=== PATIENT | male | born 1930 | race Caucasian/White ===

== ENCOUNTER → 2019-03-02 | Outpatient (CLI) | payer MEDICARE ==
[~2019-03-02] MED LIST: ALBU8.5H6 INH; ATOR10TA60 PO; CINN500C2 PO; CLOP75TA PO; DOXY20TA5 PO; HYDR-2769 PO; LISI-334 PO; METO1TAB7 PO; MULT-208 PO; OMEG300C PO; OMEP40CA5 PO; RIVA1PAT22 TP; TAMS0.4C2 PO; WARF-31 PO
--- NOTE | 2019-03-03 09:20 | CARD ---
MR#: [id number] Date of Study: 03/02/2019 Ordering Physician: VI BUSTILLO, Referring Physician: VI BUSTILLO, Tech: Makayla Lange APPROVED REPORT EXAM: Two-dimensional and M-mode echocardiogram with Doppler and color Doppler. Other Information Quality : AverageHR: 71bpm INDICATION CVA/TIA Surgery/Intervention Pacemaker: 2D DIMENSIONS RVDd3.1 (2.9-3.5cm)Left Atrium(2D)3.0 (1.6-4.0cm) IVSd1.4 (0.7-1.1cm)Aortic Root(2D)3.0 (2.0-3.7cm) LVDd4.5 (3.9-5.9cm)LVOT Diameter2.2 (1.8-2.4cm) PWd1.2 (0.7-1.1cm)LVDs2.4 (2.5-4.0cm) FS (%) 46.3 %SV72.9 ml LVEF(%)77.8 (>50%) Aortic Valve AoV Peak Bill.369.8cm/sAoV VTI90.2cm AO Peak GR.54.7mmHgLVOT Peak Bill.75.3cm/s LVOT VTI 17.18cmAO Mean GR.39mmHg ASIYA (VMAX)0.68eu8MVJ (VTI)0.74cm2 AI P 1/2 Hwgq562wl Mitral Valve MV E Qoqdizsn01.2cm/sMV DECEL GBWC332ca MV A Toacqhza81.4cm/sMV LSJ78lb E/A Ratio0.9MVA (PHT)2.75cm2 TDI E/Lateral E'10.4E/Medial E'18.4 Pulmonary Valve PV Peak Ovircdqq62.6cm/sPV Peak Grad.4mmHg Tricuspid Valve TR P. Yftjjixs354gk/sRAP EKSZTNNR5rfKg TR Peak Gr.15ijXwJJXO91lkHl Pulmonary Vein S1 Epkajcit66.8cm/sD2 Bectirnn91.0cm/s PVa orfhazjm568aieg LEFT VENTRICLE The Left Ventricle is mildly dilated. There is mild to moderate concentric left ventricular hypertrop hy. The left ventricular systolic function is normal and the ejection fraction is within normal range . There is normal LV segmental wall motion. Tissue Doppler imaging reveals moderate left ventricular diastolic dysfunction. RIGHT VENTRICLE The right ventricle is normal size. There is normal right ventricular wall thickness. The right ventr icular systolic function is normal. ATRIA The left atrium is mildly dilated. The right atrium size is normal. The interatrial septum is intact with no evidence for an atrial septal defect or patent foramen ovale as noted on 2-D or Doppler imagi ng. AORTIC VALVE The aortic valve is calcified and has a restricted leaflet motion. Doppler and Color Flow revealed tr aviva to mild aortic regurgitation. Calculated aortic valve area is .75 cm2 with maximum pressure gradi ent of 55 mmHg and mean pressure gradient of 39 mmHg. Doppler and color-flow analysis revealed severe aortic stenosis. MITRAL VALVE Mitral annular calcification is mild to moderate. There is no evidence of mitral valve prolapse. Ther e is no mitral valve stenosis. Doppler and Color-flow revealed trace mitral regurgitation. TRICUSPID VALVE The tricuspid valve is normal in structure and function. Doppler and Color Flow revealed trace tricus pid regurgitation with an estimated PAP of 32 mmHg. There is no tricuspid valve stenosis. PULMONIC VALVE The pulmonic valve is not well visualized. Doppler and Color Flow revealed no pulmonic valvular regur gitation. There is no pulmonic valvular stenosis. GREAT VESSELS The aortic root is normal in size. The IVC is normal in size and collapses >50% with inspiration. PERICARDIAL EFFUSION There is no evidence of significant pericardial effusion. Critical Notification Critical Value: No <Conclusion> The left ventricular systolic function is normal and the ejection fraction is within normal range. There is normal LV segmental wall motion. Calculated aortic valve area is .75 cm2 with maximum pressure gradient of 55 mmHg and mean pressure g radient of 39 mmHg. Doppler and color-flow analysis revealed severe aortic stenosis. Doppler and Color Flow revealed trace tricuspid regurgitation with an estimated PAP of 32 mmHg. Signed by : Brendan East, Electronically Approved : 03/02/2019 13:35:21
== END | disposition home or self-care (01) ==
LOC: ECHO 09:52
PROVIDERS: ATTEND Family Medicine
DX: I08.0 Rheumatic disorders of both mitral and aortic valves (principal); H53.452 Other localized visual field defect, left eye; Z95.0 Presence of cardiac pacemaker
CPT/HCPCS: 93306

== ENCOUNTER 2019-12-15 08:35 | Inpatient (IN) | payer MEDICARE ==
[~2019-12-15] VITALS: Ht 165.1 cm; Wt 81.2 kg
[~2019-12-15 08:35] MED LIST changes: +OMEP40CA45 PO; -OMEP40CA5 PO
[2019-12-15] MEDS ORDERED: OXYMETAZOLINE 0.05% NASAL SPRAY 30ML BOTTLE. NS ONE (09:00)
[2019-12-15] MEDS ORDERED: EPINEPHrine NASAL 30 MG/30 ML BOTTLE NS ONE (09:00)
[2019-12-15] MEDS ORDERED: COCAINE 4% TOPICAL SOLUTION. TP ONE (09:00)
[2019-12-15 09:47] LABS: BASO # 0.1 x10^3/uL (0.0-0.2); BASO % 1 % (0-3); EOS # 0.1 x10^3/uL (0.0-0.7); EOS % 1 % (0-3); HEMATOCRIT 39.2 % (39.0-53.0); HEMOGLOBIN 13.7 g/dL (13.0-17.5); LYMPH # 1.7 x10^3/uL (1.0-4.8); LYMPH % 15 % (24-48); MEAN CORPUSCULAR HEMOGLOBIN 35 pg (25-35); MEAN CORPUSCULAR HGB CONC 35 g/dL (31-37); MEAN CORPUSCULAR VOLUME 101 fL (79-100); MONO # 0.8 x10^3/uL (0.0-1.1); MONO % 7 % (0-9); NEUT # 9.2 x10^3/uL (1.8-7.7); NEUT % 77 % (31-73); PLATELET COUNT 224 x10^3/uL (140-400); RED CELL DISTRIBUTION WIDTH 14.8 % (11.5-14.5)
[2019-12-15 10:03] LABS: PROTHROMBIN TIME PATIENT 14.4 SEC (11.7-14.0)
--- NOTE | 2019-12-15 10:29 | PHYS DOC ---
Past Medical History Past Medical History: Asthma, High Cholesterol, Hypertension, NC Additional Past Medical Histor: enlarged prostate, stents,emphysema Past Surgical History: Appendectomy, Tonsillectomy, Other Additional Past Surgical Histo: sinus sugery, bilat knee rx, coronary stents Smoking Status: Never Smoker Alcohol Use: None General Adult EDM: Chief Complaint: NOSEBLEED HPI: HPI: Patient is a 89 year old male who present to ER today for evaluation of nose bleeding since 5 AM this morning. Patient said he has been constipated for 2 days, he was trying to go to the bathroom this morning and started having bleeding from his left nostril. It was bleeding heavily, he could not stop it at home so he called his daughter to take him here for evaluation. Patient is on baby aspirin a day, denies any other blood thinner. Patient has history of nose surgery in the past by Dr. Aleisha Jenkins. Patient denies any abdominal pain, no chest pain, no trouble breathing. Review of Systems: Review of Systems: Constitutional: Denies fever or chills. [] Eyes: Denies change in visual acuity. [] HENT: Positive for nosebleed Respiratory: Denies cough or shortness of breath. [] Cardiovascular: Denies chest pain or edema. [] GI: Denies abdominal pain, nausea, vomiting, bloody stools or diarrhea. [] : Denies dysuria. [] Musculoskeletal: Denies back pain or joint pain. [] Integument: Denies rash. [] Neurologic: Denies headache, focal weakness or sensory changes. [] Endocrine: Denies polyuria or polydipsia. [] Lymphatic: Denies swollen glands. [] Psychiatric: Denies depression or anxiety. [] Heart Score: Risk Factors: Risk Factors: DM, Current or recent (<one month) smoker, HTN, HLP, family history of CAD, obesity. Risk Scores: Score 0 - 3: 2.5% MACE over next 6 weeks - Discharge Home Score 4 - 6: 20.3% MACE over next 6 weeks - Admit for Clinical Observation Score 7 - 10: 72.7% MACE over next 6 weeks - Early Invasive Strategies Current Medications: Current Medications Medications (Trade) Dose Ordered Sig/Rico Start Time Stop Time Status Last Admin Dose Admin Cocaine HCl (Cocaine 4% Topical) 4 ml 1X ONCE 12/15/19 09:00 12/15/19 09:01 DC 12/15/19 09:50 4 ML Epinephrine HCl (Adrenalin Nasal) 1 mg 1X ONCE 12/15/19 09:00 12/15/19 09:01 DC 12/15/19 09:50 1 MG Oxymetazoline HCl (Afrin) 2 spray 1X ONCE 12/15/19 09:00 12/15/19 09:01 DC 12/15/19 09:50 2 SPRAY Allergies: Allergies: Allergies Coded Allergies Type Severity Reaction Last Updated Verified NSAIDS (Non-Steroidal Anti-Inflamma Allergy Intermediate 12/15/19 Yes erythromycin base Allergy Intermediate 12/15/19 Yes naproxen Allergy Intermediate 09/13/14 No Physical Exam: PE: Constitutional: Well developed, well nourished, no acute distress, non-toxic appearance. [] HENT: Normocephalic, atraumatic, bilateral external ears normal, oropharynx moist, no oral exudates, nose normal. [] Eyes: PERRLA, EOMI, conjunctiva normal, no discharge. [] Neck: Normal range of motion, no tenderness, supple, no stridor. [] Cardiovascular:Heart rate regular rhythm, no murmur [] Lungs & Thorax: Bilateral breath sounds clear to auscultation [] Abdomen: Bowel sounds normal, soft, no tenderness, no masses, no pulsatile masses. [] Skin: Warm, dry, no erythema, no rash. [] Back: No tenderness, no CVA tenderness. [] Extremities: No tenderness, no cyanosis, no clubbing, ROM intact, no edema. [] Neurologic: Alert and oriented X 3, normal motor function, normal sensory function, no focal deficits noted. [] Psychologic: Affect normal, judgement normal, mood normal. [] Current Patient Data: Labs: Laboratory Tests Test 12/15/19 09:20 White Blood Count 12.0 x10^3/uL (4.0-11.0) H Red Blood Count 3.90 x10^6/uL (4.30-5.70) L Hemoglobin 13.7 g/dL (13.0-17.5) Hematocrit 39.2 % (39.0-53.0) Mean Corpuscular Volume 101 fL (79-100) H Mean Corpuscular Hemoglobin 35 pg (25-35) Mean Corpuscular Hemoglobin Concent 35 g/dL (31-37) Red Cell Distribution Width 14.8 % (11.5-14.5) H Platelet Count 224 x10^3/uL (140-400) Neutrophils (%) (Auto) 77 % (31-73) H Lymphocytes (%) (Auto) 15 % (24-48) L Monocytes (%) (Auto) 7 % (0-9) Eosinophils (%) (Auto) 1 % (0-3) Basophils (%) (Auto) 1 % (0-3) Neutrophils # (Auto) 9.2 x10^3/uL (1.8-7.7) H Lymphocytes # (Auto) 1.7 x10^3/uL (1.0-4.8) Monocytes # (Auto) 0.8 x10^3/uL (0.0-1.1) Eosinophils # (Auto) 0.1 x10^3/uL (0.0-0.7) Basophils # (Auto) 0.1 x10^3/uL (0.0-0.2) Prothrombin Time 14.4 SEC (11.7-14.0) H Prothrombin Time INR 1.2 (0.8-1.1) H Activated Partial Thromboplast Time 26 SEC (24-38) Laboratory Tests 12/15/19 09:20 Vital Signs: Vital Signs Date Time Temp Pulse Resp B/P (MAP) Pulse Ox O2 Delivery O2 Flow Rate FiO2 12/15/19 09:49 68 18 94/55 (68) 94 Room Air 12/15/19 08:45 97.5 97.5 EKG: EKG: [] Radiology/Procedures: Radiology/Procedures: Indication: Epistaxis Procedure: The patient was positioned appropriately and the nares were cleared as well as possible. The bleeding site was POSTERIOR LEFT NARE. NASAL AFRIN, TOPICAL EPINEPHRINE WAS APPLIED. An Epistat Nasal Catheter was inserted into left nare. Hemostasis was obtained. The patient tolerated the procedure well. Complications: none. [facility] [address] [place] [address] IMAGING REPORT Signed PATIENT: JEANNETTE ARREDONDO ACCOUNT: [id number] : 1930 LOCATION: ER AGE: 89 SEX: M EXAM STATUS: REG ER ORD. PHYSICIAN: YANIRA DESAI DO REASON: nausea, vomiting, constipated PROCEDURE: ACUTE ABDOMEN SERIES ACUTE ABDOMEN SERIES History: Reason: nausea, vomiting, constipated / Spl. Instructions: / History: Technique: Upright and supine views the abdomen. Comparison: CT July 18, 2012. Findings: No consolidation or pleural effusion. No pneumothorax. Left-sided pacemaker. Heart size. No pneumoperitoneum. Moderate gaseous distention of the stomach. Several nondilated air-filled loops of small bowel. Air and stool scattered throughout the colon. Advanced lower lumbar spondylosis. Postoperative changes penile prosthesis. Surgical clips right upper quadrant. Impression: 1. Moderate gaseous distention of the stomach. 2. Multiple nondilated air-filled loops of small bowel, may represent enteritis or ileus. Recommend follow-up to exclude developing obstruction. Electronically signed by: Isaac Mosqueda DO (12/15/2019 11:15 AM) [id number] DICTATED and SIGNED BY: ISAAC MOSQUEDA DO DATE: 12/15/19 1115 Course & Med Decision Making: Course & Med Decision Making Pertinent Labs and Imaging studies reviewed. (See chart for details) Patient is an 89-year-old male who was evaluated in the ER due to nasal bleeding, posterior epistaxis on the left side. Bleeding was stopped with nasal catheter placed. Patient magnesium level was low, he was given 2 g of magnesium IV. Patient appeared to be really weak, x-ray abdomen distended stomach, and an Ileus. Discussed with the ENT doctor Dr. Aleisha Jenkins who agreed to see the patient in the hospital. Olimpiaon Disclaimer: Dragon Disclaimer: This electronic medical record was generated, in whole or in part, using a voice recognition dictation system. Departure Departure Impression: Primary Impression: Posterior epistaxis Additional Impression: Hypomagnesemia Disposition: ADMITTED INPATIENT Admitting Physician: HARESH (Dr. ALCARAZ) Condition: STABLE Referrals: VI BUSTILLO MD (PCP) Justicifation of Admission Dx: Justifications for Admission: Justification of Admission Dx: N/A YANIRA DESAI DO Dec 15, 2019 10:29
[2019-12-15 10:47] LABS: CALCIUM 8.7 mg/dL (8.5-10.1); CREATININE 0.9 mg/dL (0.7-1.3); GFR 79.8; POTASSIUM 3.6 mmol/L (3.5-5.1)
[2019-12-15 10:48] LABS: ALBUMIN 3.1 g/dL (3.4-5.0); ALBUMIN/GLOBULIN RATIO 1.1 (1.0-1.7); MAGNESIUM 1.1 mg/dL (1.8-2.4); TOTAL BILIRUBIN 0.6 mg/dL (0.2-1.0); TOTAL PROTEIN 5.8 g/dL (6.4-8.2)
[2019-12-15] MEDS ORDERED: MAGNESIUM SULFATE 2GM 50 ML IV ONE (11:15)
--- NOTE | 2019-12-15 11:18 | RAD ---
ACUTE ABDOMEN SERIES History: Reason: nausea, vomiting, constipated / Spl. Instructions: / History: Technique: Upright and supine views the abdomen. Comparison: CT July 18, 2012. Findings: No consolidation or pleural effusion. No pneumothorax. Left-sided pacemaker. Heart size. No pneumoperitoneum. Moderate gaseous distention of the stomach. Several nondilated air-filled loops of small bowel. Air and stool scattered throughout the colon. Advanced lower lumbar spondylosis. Postoperative changes penile prosthesis. Surgical clips right upper quadrant. Impression: 1. Moderate gaseous distention of the stomach. 2. Multiple nondilated air-filled loops of small bowel, may represent enteritis or ileus. Recommend follow-up to exclude developing obstruction. Electronically signed by: Isaac Mosqueda DO (12/15/2019 11:15 AM) [id number]
[2019-12-15] MEDS ORDERED: ONDANSETRON PF 4 MG/2 ML VIAL. IV PRN (12:15)
[2019-12-15 15:16] VITALS: BP 152/82
[2019-12-15] MEDS ORDERED: ZONI25CA26 PO (16:25)
[2019-12-15] MEDS ORDERED: TAMS0.4C97 PO (16:25)
[2019-12-15] MEDS ORDERED: ATOR40TA59 PO (16:25)
[2019-12-15] MEDS ORDERED: AZEL137S3 NS (16:25)
[2019-12-15] MEDS ORDERED: DONE10TA7 PO (16:25)
[2019-12-15] MEDS ORDERED: ACETAMINOPHEN 325 MG TABLET. PO PRN (16:45)
[2019-12-15 19:05] VITALS: BP 131/62
[2019-12-15] MEDS ORDERED: ALBUTEROL SULFATE 2.5 MG/3 ML NEBU. NEB SCH (20:00)
[2019-12-15] MEDS ORDERED: NON FORMULARY ITEM (Albuterol Sulfate (Albuterol Sulfate Hfa Inhaler) 2 PUFF) INH SCH (20:00)
[2019-12-15] MEDS ORDERED: ZONISAMIDE 50 MG PO SCH (21:00)
[2019-12-15] MEDS: AZELASTINE NASAL SPRAY 30ML BOTTLE. NS SCH (21:00)
[2019-12-15] MEDS ORDERED: ATORVASTATIN CALCIUM 40 MG TABLET. PO SCH (21:00)
--- NOTE | 2019-12-15 21:16 | PDOC1 ---
History and Physical Date of Admission Date of Admission DATE: 12/15/19 TIME: 21:04 Identification/Chief Complaint Chief Complaint nose bleed Source Source: Chart review, Patient History of Present Illness History of Present Illness 89 year old hx of dementia, BPH, HLD who presents with suddent onset of nose bleeding at 5 am. reported constipation for 2 days. patient could not stop bleeding so came to ED. not on blood thinners. takes ASA 81 daily. noted hx of nose surgery seen by Dr. Aleisha Jenkins in past. no other complaints. denies chest pain sob nausea vomiting diarrhea. acute abdominal series 1. Moderate gaseous distention of the stomach. 2. Multiple nondilated air-filled loops of small bowel, may represent enteritis or ileus. Recommend follow-up to exclude developing obstruction. Hb stable in ED at 13.7 Past Medical History Past Medical History HLD, BPH, dementia Past Surgical History Past Surgical History hx of nasal sx in past Family History Family History reviewed and denies Social History Smoke: No ALCOHOL: none Drugs: None Current Problem List Problem List Problems Medical Problems: (1) Hypomagnesemia Status: Acute (2) Posterior epistaxis Status: Acute Current Medications Current Medications Current Medications Oxymetazoline HCl (Afrin) 2 spray 1X ONCE NS Last administered on 12/15/19at 09:50; Start 12/15/19 at 09:00; Stop 12/15/19 at 09:01; Status DC Cocaine HCl (Cocaine 4% Topical) 4 ml 1X ONCE TP Last administered on 12/15/19at 09:50; Start 12/15/19 at 09:00; Stop 12/15/19 at 09:01; Status DC Epinephrine HCl (Adrenalin Nasal) 1 mg 1X ONCE NS Last administered on 12/15/19at 09:50; Start 12/15/19 at 09:00; Stop 12/15/19 at 09:01; Status DC Magnesium Sulfate 50 ml @ 25 mls/hr 1X ONCE IV Last administered on 12/15/19at 11:17; Start 12/15/19 at 11:15; Stop 12/15/19 at 13:14; Status DC Ondansetron HCl (Zofran) 4 mg PRN Q8HRS PRN IV NAUSEA/VOMITING; Start 12/15/19 at 12:15; Stop 12/16/19 at 12:14 Acetaminophen (Tylenol) 650 mg PRN Q6HRS PRN PO PAIN; Start 12/15/19 at 16:45 Atorvastatin Calcium (Lipitor) 40 mg QHS PO ; Start 12/15/19 at 21:00 Azelastine HCl (Astelin) 2 spray BID NS ; Start 12/15/19 at 21:00 Donepezil HCl (Aricept) 10 mg DAILY PO ; Start 12/16/19 at 09:00 Tamsulosin HCl (Flomax) 0.8 mg DAILY PO ; Start 12/16/19 at 09:00 Non-Formulary Medication (Albuterol Sulfate (Albuterol Sulfate Hfa Inhaler)) 2 puff Q4HRS INH ; Start 12/15/19 at 20:00; Status UNV Pantoprazole Sodium (Protonix) 40 mg DAILYAC PO ; Start 12/16/19 at 07:30 Non-Formulary Medication (Zonisamide ) 50 mg HS PO ; Start 12/15/19 at 21:00; Status UNV Albuterol Sulfate (Ventolin Neb Soln) 2.5 mg Q4HRS NEB ; Start 12/15/19 at 20:00 Active Scripts Active Reported Azelastine Hcl 137 Mcg/0.137 Ml Har[place].pump 2 [place] NS BID 30 Days Zonisamide 25 Mg Capsule 50 Mg PO HS Donepezil Hcl 10 Mg Tablet 1 Tab PO DAILY Atorvastatin Calcium 40 Mg Tablet 1 Tab PO DAILY Flomax (Tamsulosin Hcl) 0.4 Mg Cap.er.24h 2 Cap PO DAILY Albuterol Sulfate Hfa Inhaler (Albuterol Sulfate) 8.5 Gm Hfa.aer.ad 2 Puff INH Q4HRS Omeprazole 40 Mg Capsule.dr 1 Cap PO DAILY Allergies Allergies: Coded Allergies: NSAIDS (Non-Steroidal Anti-Inflamma (Verified Allergy, Intermediate, 12/15/19) erythromycin base (Verified Allergy, Intermediate, 12/15/19) naproxen (Unverified Allergy, Intermediate, 09/13/14) ROS Review of System CONSTITUTIONAL: No fever or chills EYES: No recent changes SKIN: No rash or itching CARDIOVASCULAR: No chest pain, syncope, palpitations, or edema RESPIRATORY: No SOB or cough GASTROINTESTINAL: No nausea, vomiting or abdominal pain NEUROLOGICAL: No headaches or weakness ENDOCRINE: No cold or heat intolerance GENITOURINARY: No urgency or frequency of urination MUSCULOSKELETAL: No back pain or joint pain LYMPHATICS: No enlarged lymph nodes PSYCHIATRIC: No anxiety or depression Physical Exam Physical Exam GENERAL: No apparent distress. Alert and oriented. HEENT: Head normocephalic, atraumatic. nasal packing in place NECK: Supple LUNGS: Clear to auscultation. HEART: RRR, S1, S2 present, pulses intact ABDOMEN: Soft, positive bowel sounds. EXTREMITIES: No cyanosis or edema. NEUROLOGIC: Normal speech, normal tone PSYCHIATRIC: Normal affect, normal mood. SKIN: No ulceration. Vitals Vitals Vital Signs Date Time Temp Pulse Resp B/P (MAP) Pulse Ox O2 Delivery O2 Flow Rate FiO2 12/15/19 19:05 99.0 74 20 131/62 (85) 95 Room Air 99.0 Labs Labs Laboratory Tests Test 12/15/19 09:20 White Blood Count 12.0 x10^3/uL (4.0-11.0) Red Blood Count 3.90 x10^6/uL (4.30-5.70) Hemoglobin 13.7 g/dL (13.0-17.5) Hematocrit 39.2 % (39.0-53.0) Mean Corpuscular Volume 101 fL (79-100) Mean Corpuscular Hemoglobin 35 pg (25-35) Mean Corpuscular Hemoglobin Concent 35 g/dL (31-37) Red Cell Distribution Width 14.8 % (11.5-14.5) Platelet Count 224 x10^3/uL (140-400) Neutrophils (%) (Auto) 77 % (31-73) Lymphocytes (%) (Auto) 15 % (24-48) Monocytes (%) (Auto) 7 % (0-9) Eosinophils (%) (Auto) 1 % (0-3) Basophils (%) (Auto) 1 % (0-3) Neutrophils # (Auto) 9.2 x10^3/uL (1.8-7.7) Lymphocytes # (Auto) 1.7 x10^3/uL (1.0-4.8) Monocytes # (Auto) 0.8 x10^3/uL (0.0-1.1) Eosinophils # (Auto) 0.1 x10^3/uL (0.0-0.7) Basophils # (Auto) 0.1 x10^3/uL (0.0-0.2) Prothrombin Time 14.4 SEC (11.7-14.0) Prothromb Time International Ratio 1.2 (0.8-1.1) Activated Partial Thromboplast Time 26 SEC (24-38) Sodium Level 143 mmol/L (136-145) Potassium Level 3.6 mmol/L (3.5-5.1) Chloride Level 105 mmol/L (98-107) Carbon Dioxide Level 24 mmol/L (21-32) Anion Gap 14 (6-14) Blood Urea Nitrogen 21 mg/dL (8-26) Creatinine 0.9 mg/dL (0.7-1.3) Estimated GFR (Cockcroft-Gault) 79.8 BUN/Creatinine Ratio 23 (6-20) Glucose Level 173 mg/dL (70-99) Calcium Level 8.7 mg/dL (8.5-10.1) Magnesium Level 1.1 mg/dL (1.8-2.4) Total Bilirubin 0.6 mg/dL (0.2-1.0) Aspartate Amino Transf (AST/SGOT) 25 U/L (15-37) Alanine Aminotransferase (ALT/SGPT) 20 U/L (16-63) Alkaline Phosphatase 38 U/L (46-116) JN-Vgy-X-Type Natriuretic Peptide 2361 pg/mL (0-449) Total Protein 5.8 g/dL (6.4-8.2) Albumin 3.1 g/dL (3.4-5.0) Albumin/Globulin Ratio 1.1 (1.0-1.7) Laboratory Tests Test 12/15/19 09:20 White Blood Count 12.0 x10^3/uL (4.0-11.0) Red Blood Count 3.90 x10^6/uL (4.30-5.70) Hemoglobin 13.7 g/dL (13.0-17.5) Hematocrit 39.2 % (39.0-53.0) Mean Corpuscular Volume 101 fL (79-100) Mean Corpuscular Hemoglobin 35 pg (25-35) Mean Corpuscular Hemoglobin Concent 35 g/dL (31-37) Red Cell Distribution Width 14.8 % (11.5-14.5) Platelet Count 224 x10^3/uL (140-400) Neutrophils (%) (Auto) 77 % (31-73) Lymphocytes (%) (Auto) 15 % (24-48) Monocytes (%) (Auto) 7 % (0-9) Eosinophils (%) (Auto) 1 % (0-3) Basophils (%) (Auto) 1 % (0-3) Neutrophils # (Auto) 9.2 x10^3/uL (1.8-7.7) Lymphocytes # (Auto) 1.7 x10^3/uL (1.0-4.8) Monocytes # (Auto) 0.8 x10^3/uL (0.0-1.1) Eosinophils # (Auto) 0.1 x10^3/uL (0.0-0.7) Basophils # (Auto) 0.1 x10^3/uL (0.0-0.2) Prothrombin Time 14.4 SEC (11.7-14.0) Prothromb Time International Ratio 1.2 (0.8-1.1) Activated Partial Thromboplast Time 26 SEC (24-38) Sodium Level 143 mmol/L (136-145) Potassium Level 3.6 mmol/L (3.5-5.1) Chloride Level 105 mmol/L (98-107) Carbon Dioxide Level 24 mmol/L (21-32) Anion Gap 14 (6-14) Blood Urea Nitrogen 21 mg/dL (8-26) Creatinine 0.9 mg/dL (0.7-1.3) Estimated GFR (Cockcroft-Gault) 79.8 BUN/Creatinine Ratio 23 (6-20) Glucose Level 173 mg/dL (70-99) Calcium Level 8.7 mg/dL (8.5-10.1) Magnesium Level 1.1 mg/dL (1.8-2.4) Total Bilirubin 0.6 mg/dL (0.2-1.0) Aspartate Amino Transf (AST/SGOT) 25 U/L (15-37) Alanine Aminotransferase (ALT/SGPT) 20 U/L (16-63) Alkaline Phosphatase 38 U/L (46-116) MQ-Exf-R-Type Natriuretic Peptide 2361 pg/mL (0-449) Total Protein 5.8 g/dL (6.4-8.2) Albumin 3.1 g/dL (3.4-5.0) Albumin/Globulin Ratio 1.1 (1.0-1.7) VTE Prophylaxis Ordered VTE Prophylaxis Devices: Yes VTE Pharmacological Prophylaxi: Yes Assessment/Plan Assessment/Plan A/P Acute Epistaxis Moderate gaseous distention of the stomach. Multiple nondilated air-filled loops of small bowel, may represent enteritis or ileus. Recommend follow-up to exclude developing obstruction. elevated sugar Elevated BNP admit to medical floor bed nasal packing ENT consult check a1c repeat abdominal series in AM no heparin given bleed Hb in AM FULL CODE med rec completed. Justicifation of Admission Dx: Justifications for Admission: Justification of Admission Dx: N/A RONNY ALCARAZ MD Dec 15, 2019 21:16
[2019-12-15] MEDS ORDERED: ALBUTEROL SULFATE 2.5 MG/3 ML NEBU. NEB PRN (21:45)
[2019-12-15 23:06] VITALS: BP 117/52
[2019-12-16 02:55] VITALS: BP 103/56
--- NOTE | 2019-12-16 03:00 | NUR ---
patient pulled plug out of l nostril. No bleeding noted. Patient comfortable at this time.
[2019-12-16 03:53] LABS: BASO # 0.1 x10^3/uL (0.0-0.2); BASO % 1 % (0-3); EOS % 0 % (0-3); HEMATOCRIT 31.8 % (39.0-53.0); HEMOGLOBIN 11.4 g/dL (13.0-17.5); LYMPH % 22 % (24-48); MEAN CORPUSCULAR HEMOGLOBIN 36 pg (25-35); MEAN CORPUSCULAR HGB CONC 36 g/dL (31-37); MEAN CORPUSCULAR VOLUME 99 fL (79-100); MONO # 0.8 x10^3/uL (0.0-1.1); MONO % 9 % (0-9); NEUT # 6.1 x10^3/uL (1.8-7.7); NEUT % 68 % (31-73); PLATELET COUNT 171 x10^3/uL (140-400)
[2019-12-16 04:11] LABS: CALCIUM 7.9 mg/dL (8.5-10.1); GFR 70.7; POTASSIUM 3.5 mmol/L (3.5-5.1)
[2019-12-16] MEDS ORDERED: ZONISAMIDE 50 MG PO SCH (05:17)
[2019-12-16 07:12] VITALS: BP 110/62
[2019-12-16] MEDS ORDERED: PANTOPRAZOLE 40 MG TABLET.DR. PO SCH (07:30)
[2019-12-16] MEDS: AZELASTINE NASAL SPRAY 30ML BOTTLE. NS SCH (09:00)
[2019-12-16] MEDS ORDERED: TAMSULOSIN 0.4 MG CAP.ER.24H. PO SCH (09:00)
[2019-12-16] MEDS ORDERED: DONEPEZIL HCL 10 MG TABLET. PO SCH (09:00)
[2019-12-16 11:23] VITALS: BP 95/46
--- NOTE | 2019-12-16 12:07 | RAD ---
Examination: ACUTE ABDOMEN SERIES History: Pain Comparison/Correlation: 12/15/2019 acute abdomen series exam Findings: Portable upright frontal view of the chest was obtained. Dual-lead left-sided pacemaker is present. Heart size and pulmonary vasculature are normal. No pneumothorax. No infiltrate or pleural effusion. Right mid abdominal surgical clips are present. Fluid level within nondistended bowel. Gas within stomach noted. No suspicious abdominal calcifications is again noted. Degenerative changes of the spine again seen. Compression deformity of T12 is present and unchanged. No extraluminal gas. Decreased distention of small bowel is noted since the prior exam. Impression: No infiltrates in the interval. No bowel obstruction. Electronically signed by: Jamari Turk MD (12/16/2019 12:03 PM) [id number]
--- NOTE | 2019-12-16 12:32 | DISCH ---
DISCHARGE INSTRUCTIONS Condition on Discharge Condition on Discharge: Stable Activity After Discharge Activity Instructions for Disc: No restrictions Diet after Discharge Diet after Discharge: Cardiac Checks after Discharge Checks after discharge: Check your Temp as needed Contacting the DRGabriel after DC Call your doctor for: If your condition worsens Follow-Up Follow up with: Follow-up with ENT tomorrow regarding your nosebleed episode SANTIAGO ECHEVERRIA MD Dec 16, 2019 12:31
--- NOTE | 2019-12-16 13:09 | NUR ---
SW following. Reviewed chart and spoke with RN and CM. Pt from home with no SW needs at discharge. Pt to discharge today on room air and oral medications.
--- NOTE | 2019-12-16 13:20 | NUR ---
Discharge Note: JEANNETTE ARREDONDO [address] Discharge instructions and discharge home medications reviewed with patient and a copy given. All questions have been answered and understanding verbalized. The following instructions and handouts were given: Follow up with Dr. Jenkins on Saturday at her clinic. Watch out for repeat episodes of nose bleed, severe body weakness. Continue home meds as directed. Follow up with PCP in a week. Discontinued lines and drains: peripheral IV intact, patient tolerated removal, no complications noted. Patient discharged to home with self-care via wheelchair accompanied by family members at 1310.
--- NOTE | 2019-12-16 13:31 | PDOC2 ---
Consult: Chief Complaint: epistaxis HPI: 89 year old male presents to ER yesterday with severe left-sided epistaxis. Patient had previously underwent right FESS (maxillary) and bilateral denervation of nasal cavity with cryotherapy (Clarifix) on 11-20-2019. Patient had severe left sided bleeding yesterday. ER placed pack to resolve. Patient was admitted to hospital due to weakness and abnormal electrolytes. Patient sneezed out pack in middle of night. No issues with recurrent bleeding PMH/PSH/Meds: reviewed PE: VSS, Afebrile Nasal Cavity: No further bleeding OC/OP: no posterior bleeding A: 89 year old male with recent epistaxis--- over 1 month ago. No further bleeding after packing removed. P: 1. Discussed no nose blowing or strenuous activity with the patient. 2. Paitent to follow up with me on Saturday for nasal endoscopy and exam. CRISPIN ARREDONDO MD Dec 16, 2019 13:31
--- NOTE | 2019-12-16 17:48 | PDOC3 ---
[facility]-Discharge Summary Date of Admission: Date of Admission: Dec 16, 2019 Date of Discharge: Date of Discharge: Dec 16, 2019 Admission Diagnosis: Admitting Diagnosis: Acute Epistaxis Moderate gaseous distention of the stomach. Multiple nondilated air-filled loops of small bowel, may represent enteritis or ileus. Recommend follow-up to exclude developing obstruction. elevated sugar Elevated BNP Discharge Diagnosis: Discharge Diagnosis: Acute Epistaxisstable Dementia Dyslipidemia Elevated blood sugars BPH Consults: Consults: ENT Hospital Course: Hospital Course: 89 year old hx of dementia, BPH, HLD who presents with suddent onset of nose bleeding at 5 am. reported constipation for 2 days. patient could not stop bleeding so came to ED. not on blood thinners. takes ASA 81 daily. noted hx of nose surgery seen by Dr. Aleisha Jenkins in past. no other complaints. denies chest pain sob nausea vomiting diarrhea. Patient was admitted for further care. Nasal packing was kept in place and eventually removed by ENT service. Upon further questioning patient states that he was trying to apply nasal spray to his nose and because of his essential tremors he went to fire ant and states that he might of ruptured his membranes. Patient was instructed to follow-up with ENT tomorrow morning. Patient has stopped bleeding and did not require any nasal packing. Patient was clinically stable and his blood pressures are within normal limits. Patient was tolerating diet. Patient's gastric distention had also improved with a good bowel movement before discharge. A KUB was repeated which showed decrease in his gastric distention. The rest of his hospital course was uneventful. Disposition: Disposition/Orders: D/C to Home Activity: Activity: Resume previous activity Diet: Diet: Regular Medications: Home Meds Reported Medications Zonisamide (ZONISAMIDE) 25 Mg Capsule, 50 MG PO HS for unknown, CAP 12/15/19 Donepezil Hcl (DONEPEZIL HCL) 10 Mg Tablet, 1 TAB PO DAILY for dementia, #90 TAB 1 Refill 12/15/19 Atorvastatin Calcium (ATORVASTATIN CALCIUM) 40 Mg Tablet, 1 TAB PO DAILY for HLD, #30 TAB 5 Refills 12/15/19 Tamsulosin Hcl (FLOMAX) 0.4 Mg Cap.er.24h, 2 CAP PO DAILY for BPH, #90 CAP 3 Refills 12/15/19 Albuterol Sulfate (ALBUTEROL SULFATE HFA INHALER) 8.5 Gm Hfa.aer.ad, 2 PUFF INH Q4HRS for FOR ASTHMA, INHALER 0 Refills 09/13/14 Omeprazole (OMEPRAZOLE) 40 Mg Capsule.dr, 1 CAP PO DAILY, #30 CAP 3 Refills 09/13/14 Discontinued Reported Medications Azelastine Hcl (AZELASTINE HCL) 137 Mcg/0.137 Ml Carter.pump, 2 SPRAY NS BID for unknown for 30 Days, #30 ML 0 Refills 12/15/19 Atorvastatin Calcium (ATORVASTATIN CALCIUM) 10 Mg Tablet, 1 TAB PO DAILY, #30 TAB 5 Refills 09/13/14 Clopidogrel Bisulfate (CLOPIDOGREL) 75 Mg Tablet, 1 TAB PO DAILY, #90 TAB 1 Refill 09/13/14 Cinnamon Bark (CINNAMON) 500 Mg Capsule, 500 MG PO 09/13/14 Doxycycline Hyclate (DOXYCYCLINE HYCLATE) 20 Mg Tablet, 20 MG PO 09/13/14 [place]-3 Fatty Acids (FISH OIL) 300 Mg Capsule, 300 MG PO 09/13/14 Multivitamin (MULTI-DAY VITAMINS) 1 Each Tablet, 1 TAB PO DAILY, #30 TAB 09/13/14 Lisinopril (LISINOPRIL) 20 Mg Tablet, 1 TAB PO DAILY, #30 TAB 5 Refills 09/13/14 Tamsulosin Hcl (TAMSULOSIN HCL) 0.4 Mg Cap.er.24h, 1 CAP PO DAILY, #30 CAP 5 Refills 09/13/14 Metoprolol/Hydrochlorothiazide (METOPROLOL-HCTZ 100-25 MG TAB) 1 Each Tablet, 1 TAB PO DAILY for FOR HYPERTENSION, #30 TAB 0 Refills 09/13/14 Rivastigmine (EXELON 4.6mg/24hr) 1 Each Patch.td24, 1 PATCH TP DAILY, #30 PATCH 3 Refills 09/13/14 Hydrocodone Bit/Acetaminophen (HYDROCODONE-APAP 10-325 ) 1 Each Tablet, 1 TAB PO BID, #60 TAB 09/13/14 Warfarin Sodium (WARFARIN SODIUM) 5 Mg Tablet, 1 TAB PO DAILY, #90 TAB 1 Refill 09/13/14 Scheduled Albuterol Sulfate (Albuterol Sulfate Hfa Inhaler), 2 PUFF INH Q4HRS, (Reported) Atorvastatin Calcium (Atorvastatin Calcium), 1 TAB PO DAILY, (Reported) Donepezil Hcl (Donepezil Hcl), 1 TAB PO DAILY, (Reported) Omeprazole (Omeprazole), 1 CAP PO DAILY, (Reported) Tamsulosin Hcl (Flomax), 2 CAP PO DAILY, (Reported) Zonisamide (Zonisamide), 50 MG PO HS, (Reported) Discontinued Medications Atorvastatin Calcium (Atorvastatin Calcium), 1 TAB PO DAILY, (Reported) Azelastine Hcl (Azelastine Hcl), 2 SPRAY NS BID, (Reported) Cinnamon Bark (Cinnamon), 500 MG PO, (Reported) Clopidogrel Bisulfate (Clopidogrel), 1 TAB PO DAILY, (Reported) Doxycycline Hyclate (Doxycycline Hyclate), 20 MG PO, (Reported) Hydrocodone Bit/Acetaminophen (Hydrocodone-Apap 10-325 ), 1 TAB PO BID, (Reported) Lisinopril (Lisinopril), 1 TAB PO DAILY, (Reported) Metoprolol/Hydrochlorothiazide (Metoprolol-Hctz 100-25 Mg Tab), 1 TAB PO DAILY, (Reported) Multivitamin (Multi-Day Vitamins), 1 TAB PO DAILY, (Reported) [place]-3 Fatty Acids (Fish Oil), 300 MG PO, (Reported) Rivastigmine (EXELON 4.6mg/24hr), 1 PATCH TP DAILY, (Reported) Tamsulosin Hcl (Tamsulosin Hcl), 1 CAP PO DAILY, (Reported) Warfarin Sodium (Warfarin Sodium), 1 TAB PO DAILY, (Reported) Total Time: Total Time: Total time spent less than 35 minutes Justicifation of Admission Dx: Justifications for Admission: Justification of Admission Dx: N/A SANTIAGO ECHEVERRIA MD Dec 16, 2019 17:48
[2019-12-17 02:09] LABS: HEMOGLOBIN A1C 5.5 % (4.8-5.6)
== END 2019-12-16 13:10 | disposition home or self-care (01) | DRG 151 ==
LOC: ER 08:35 → 6 SOUTH 12:08
PROVIDERS: ADMIT Internal Medicine; ATTEND Internal Medicine
DX: R04.0 Epistaxis (principal); K31.89 Other diseases of stomach and duodenum; E78.00 Pure hypercholesterolemia, unspecified; E78.5 Hyperlipidemia, unspecified; E83.42 Hypomagnesemia; F03.90 Unspecified dementia, unspecified severity, without behavioral disturbance, psychotic disturbance, mood disturbance, and anxiety; I10 Essential (primary) hypertension; R73.9 Hyperglycemia, unspecified; J43.9 Emphysema, unspecified; J45.909 Unspecified asthma, uncomplicated; K59.00 Constipation, unspecified; N40.0 Benign prostatic hyperplasia without lower urinary tract symptoms; G25.0 Essential tremor; Z79.82 Long term (current) use of aspirin; Z90.49 Acquired absence of other specified parts of digestive tract; Z95.5 Presence of coronary angioplasty implant and graft; I25.2 Old myocardial infarction
CPT/HCPCS: 36415; 74022; 80048; 80053; 83036; 83735; 83880; 85025; 85610; 85730; 96365; 96366; J3475; 99285-25; G0378

== ENCOUNTER 2020-03-07 19:14 | Observation (INO) | payer MEDICARE ==
[~2020-03-07] VITALS: Ht 180.3 cm; Wt 84.1 kg
[~2020-03-07 19:14] MED LIST changes: +ATOR40TA59 PO; +AZEL137S3 NS; +DONE10TA7 PO; +TAMS0.4C97 PO; +ZONI25CA26 PO
[2020-03-07 20:13] LABS: BASO % 1 % (0-3); EOS # 0.1 x10^3/uL (0.0-0.7); EOS % 2 % (0-3); HEMATOCRIT 31.2 % (39.0-53.0); HEMOGLOBIN 10.3 g/dL (13.0-17.5); LYMPH # 1.1 x10^3/uL (1.0-4.8); LYMPH % 21 % (24-48); MEAN CORPUSCULAR HEMOGLOBIN 29 pg (25-35); MEAN CORPUSCULAR HGB CONC 33 g/dL (31-37); MEAN CORPUSCULAR VOLUME 88 fL (79-100); MONO # 0.6 x10^3/uL (0.0-1.1); MONO % 10 % (0-9); NEUT # 3.6 x10^3/uL (1.8-7.7); NEUT % 66 % (31-73); PLATELET COUNT 122 x10^3/uL (140-400); RED BLOOD COUNT 3.53 x10^6/uL (4.30-5.70); RED CELL DISTRIBUTION WIDTH 17.5 % (11.5-14.5); WHITE BLOOD COUNT 5.5 x10^3/uL (4.0-11.0)
[2020-03-07 20:21] LABS: PROTHROMBIN TIME PATIENT 14.1 SEC (11.7-14.0)
[2020-03-07 20:22] LABS: CALCIUM 8.8 mg/dL (8.5-10.1); CREATININE 0.9 mg/dL (0.7-1.3); GFR 79.6; POTASSIUM 3.5 mmol/L (3.5-5.1)
--- NOTE | 2020-03-07 20:34 | RAD ---
CHEST AP ONLY History: Shortness of breath Comparison: December 16, 2019 Findings: Single view of the chest is submitted. Pericardial cardiac silhouette is again enlarged. There may be trace pleural effusions bilaterally, also mild bibasilar airspace opacity. There is again dual lead left electronic cardiac device. There is percutaneous aortic valve prosthesis. There is atherosclerotic calcification near aortic arch. No pneumothorax is identified. There is degenerative change of the acromioclavicular joints bilaterally. Impression: 1. There may be trace pleural effusions bilaterally. There is also mild bibasilar airspace opacity which may be atelectasis/edema/mild infiltrates. Electronically signed by: Quoc Quan MD (03/07/2020 8:31 PM) [facility]
[2020-03-07] MEDS ORDERED: cefTRIAXone IV Push 1 GM VIAL. IVP ONE (20:45)
--- NOTE | 2020-03-07 21:13 | PHYS DOC ---
Past Medical History Past Medical History: Asthma, High Cholesterol, Hypertension, DC Additional Past Medical Histor: enlarged prostate, stents,emphysema Past Surgical History: Appendectomy, Tonsillectomy, Other Additional Past Surgical Histo: sinus sugery, bilat knee rx, coronary stents Smoking Status: Never Smoker Alcohol Use: None General Adult EDM: Chief Complaint: SHORTNESS OF BREATH HPI: HPI: Patient is an 89-year-old male who presents to the emergency room complaining of 24 hours of cough, shortness of breath generally feeling unwell, nausea. Patient denies any abdominal pain but he feels very full. He had an aortic valve replacement done last week without any complications. His first he knows he does not have any history of congestive heart failure. He does have a pacemaker in. He states the cough is dry and rare. He denies any chest pain. He is not on oxygen at home. Review of Systems: Review of Systems: General: Denies fever, chills, sweats. Reports fatigue Eyes: Denies drainage, blurred vision, eye redness HENT: Denies rhinorrhea, sore throat, earache Respiratory: Denies wheezing reports shortness of breath, cough Cardiac: Denies edema, palpitations, chest pain GI: Denies abdominal pain, vomiting. Reports nausea MSK: Denies back pain, neck pain Skin: Denies rash, jaundice Neuro: Denies headache, dizziness Psychiatric: Denies SI/HI Heart Score: Risk Factors: Risk Factors: DM, Current or recent (<one month) smoker, HTN, HLP, family history of CAD, obesity. Risk Scores: Score 0 - 3: 2.5% MACE over next 6 weeks - Discharge Home Score 4 - 6: 20.3% MACE over next 6 weeks - Admit for Clinical Observation Score 7 - 10: 72.7% MACE over next 6 weeks - Early Invasive Strategies Current Medications: Current Medications Medications (Trade) Dose Ordered Sig/Rico Start Time Stop Time Status Last Admin Dose Admin Ceftriaxone Sodium (Rocephin) 1 gm 1X ONCE 03/07/20 20:45 03/07/20 20:46 DC Allergies: Allergies: Allergies Coded Allergies Type Severity Reaction Last Updated Verified NSAIDS (Non-Steroidal Anti-Inflamma Allergy Intermediate 12/15/19 Yes erythromycin base Allergy Intermediate 12/15/19 Yes naproxen Allergy Intermediate 09/13/14 No Physical Exam: PE: General: Awake, alert, NAD. Well Nourished, well hydrated. Cooperative HEENT: Atraumatic, EOMI, PERRL, airway patent, moist oral mucosa Neck: Supple, trachea midline Respiratory: CTA bilaterally, normal effort, no wheezing/crackles CV: RRR, no murmur, cap refill <2 GI: Soft, nondistended, nontender, no masses MSK: No obvious deformities Skin: Warm, dry, intact Neuro: A&O x3, speech NL, sensory and motor grossly intact, no focal deficits Psych: Normal affect, normal mood, not suicidal or homicidal Current Patient Data: Labs: Laboratory Tests Test 03/07/20 19:50 White Blood Count 5.5 x10^3/uL (4.0-11.0) Red Blood Count 3.53 x10^6/uL (4.30-5.70) L Hemoglobin 10.3 g/dL (13.0-17.5) L Hematocrit 31.2 % (39.0-53.0) L Mean Corpuscular Volume 88 fL (79-100) Mean Corpuscular Hemoglobin 29 pg (25-35) Mean Corpuscular Hemoglobin Concent 33 g/dL (31-37) Red Cell Distribution Width 17.5 % (11.5-14.5) H Platelet Count 122 x10^3/uL (140-400) L Neutrophils (%) (Auto) 66 % (31-73) Lymphocytes (%) (Auto) 21 % (24-48) L Monocytes (%) (Auto) 10 % (0-9) H Eosinophils (%) (Auto) 2 % (0-3) Basophils (%) (Auto) 1 % (0-3) Neutrophils # (Auto) 3.6 x10^3/uL (1.8-7.7) Lymphocytes # (Auto) 1.1 x10^3/uL (1.0-4.8) Monocytes # (Auto) 0.6 x10^3/uL (0.0-1.1) Eosinophils # (Auto) 0.1 x10^3/uL (0.0-0.7) Basophils # (Auto) 0.0 x10^3/uL (0.0-0.2) Prothrombin Time 14.1 SEC (11.7-14.0) H Prothrombin Time INR 1.1 (0.8-1.1) Sodium Level 140 mmol/L (136-145) Potassium Level 3.5 mmol/L (3.5-5.1) Chloride Level 105 mmol/L (98-107) Carbon Dioxide Level 31 mmol/L (21-32) Anion Gap 4 (6-14) L Blood Urea Nitrogen 10 mg/dL (8-26) Creatinine 0.9 mg/dL (0.7-1.3) Estimated GFR (Cockcroft-Gault) 79.6 Glucose Level 102 mg/dL (70-99) H Calcium Level 8.8 mg/dL (8.5-10.1) Troponin I Quantitative 0.074 ng/mL (0.000-0.055) TA-Pqx-J-Type Natriuretic Peptide 4523 pg/mL (0-449) H Laboratory Tests 03/07/20 19:50 Laboratory Tests 03/07/20 19:50 Vital Signs: Vital Signs Date Time Temp Pulse Resp B/P (MAP) Pulse Ox O2 Delivery O2 Flow Rate FiO2 03/07/20 19:30 99.0 70 26 137/63 (87) 94 Room Air 99.0 EKG: EKG: [] Radiology/Procedures: Radiology/Procedures: [] Course & Med Decision Making: Course & Med Decision Making Pertinent Labs and Imaging studies reviewed. (See chart for details) Patient is an 89-year-old male who presents to the emergency room with postop shortness of breath, fatigue, nausea. It is concerning for possible postop pneumonia versus coronavirus. Coronavirus test was sent. Chest x-ray shows pleural effusions. Patient will be given Rocephin here in the emergency room. He is requiring 3 L of oxygen. He will be admitted to the hospitalist for further care and evaluation. Coronavirus test is pending. Brandlive Disclaimer: DragMagic[employer] Disclaimer: This electronic medical record was generated, in whole or in part, using a voice recognition dictation system. Departure Departure Impression: Primary Impression: Pneumonia Additional Impression: Hypoxia Disposition: ADMITTED INPATIENT Condition: IMPROVED Referrals: VI BUSTILLO MD (PCP) DAISY HUTCHINSON MD Mar 07, 2020 21:13
[2020-03-08] VITALS (7 sets, daily range): BP systolic 96–177; BP diastolic 52–81
[2020-03-08] MEDS ORDERED: FURO20TA3 PO (04:58)
[2020-03-08] MEDS ORDERED: AZEL137S3 NS (04:58)
[2020-03-08] MEDS ORDERED: ASPI-630 PO (04:58)
[2020-03-08] MEDS ORDERED: ACET500T68 PO (04:58)
[2020-03-08] MEDS ORDERED: [UNRECOGNIZED DRUG - CODE] PO (04:58)
[2020-03-08] MEDS ORDERED: METO-239 PO (05:01)
[2020-03-08] MEDS ORDERED: ATROVENT HFA12.9 GM IH (05:01)
[2020-03-08] MEDS ORDERED: SENN1TAB99 PO (05:01)
[2020-03-08] MEDS ORDERED: TIOT18CA IH (05:02)
[2020-03-08] MEDS ORDERED: MULT-245 PO (05:02)
[2020-03-08] MEDS ORDERED: C.DIFF MED SCREEN BY RX. MC ONE (09:00)
[2020-03-08] MEDS: ACETAMINOPHEN 500 MG TABLET PO PRN (09:50)
--- NOTE | 2020-03-08 11:01 | PDOC2 ---
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 REFERRING PHYSICIAN Referring Physician: Dr. Roblero SOURCE Source: Chart review, Patient HISTORY OF PRESENT ILLNESS HISTORY OF PRESENT ILLNESS This is an 89 yo male who presented secondary to shortness of breath and cough for the last week. Patient forgetful/confused. Tells me he is here for indigestion. Denies any shortness of breath specifically, but does reports that he is breathing faster that normal. Appears dyspneic with exertion/talking. He denies any chest pain, palpitations, dizziness, diaphoresis, or nausea/vomiting. Does report forgetfulness. Underwent TAVR 03/02/20 at . Tolerated surgery well and was discharged the following day. Reports compliance with meds. 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 Does not follow routinely at . PAST MEDICAL HISTORY Cardiovascular: AFIB, CAD, CHF, HTN, Hyperlipidemia, Aortic stenosis (s/p TAVR 03/02/20) Pulmonary: COPD, Other (PRASANNA) CENTRAL NERVOUS SYSTEM: CVA GI: GERD Heme/Onc: Anemia NOS Renal/: Benign prostatic enlarg. PAST SURGICAL HISTORY Past Surgical History: Appendectomy, Cholecystectomy, Total knee replacement (bilateral ), Tonsillectomy, Other (vasectomy ) SOCIAL HISTORY Smoke: No ALCOHOL: none Drugs: None Lives: with Family CURRENT MEDICATIONS CURRENT MEDICATIONS Current Medications Medications (Trade) Dose Ordered Sig/Rico Route PRN Reason Start Time Stop Time Status Last Admin Dose Admin Ceftriaxone Sodium (Rocephin) 1 gm 1X ONCE IVP 03/07/20 20:45 03/07/20 20:46 DC 03/07/20 20:45 Acetaminophen (Tylenol) 1,000 mg PRN Q8HRS PRN PO pain or fever 03/08/20 09:30 03/08/20 09:50 ALLERGIES ALLERGIES: Coded Allergies: NSAIDS (Non-Steroidal Anti-Inflamma (Verified Allergy, Intermediate, 12/15/19) erythromycin base (Verified Allergy, Intermediate, 12/15/19) naproxen (Verified Allergy, Intermediate, 03/08/20) ROS Review of System 14 point ROS conducted with pertinent positives noted above in HPI although limited due to dementia PHYSICAL EXAM General: Alert, Cooperative, No acute distress, Other (oriented to person and place) HEENT: Mucous membr. moist/pink Lungs: Clear to auscultation Heart: Other (vpaced with underlying AFIB) Abdomen: Soft, No tenderness Extremities: Other (trace bilateral LE edema ) Skin: No breakdown Neuro: Sensation intact Psych/Mental Status: Mood NL, Other (forgetful) MUSCULOSKELETAL: Osteoarthritic changes both hands VITALS/I&O VITALS/I&O: Vital Signs Date Time Temp Pulse Resp B/P (MAP) Pulse Ox O2 Delivery O2 Flow Rate FiO2 03/08/20 07:00 98.2 70 18 177/81 (113) 100 Nasal Cannula 2.0 98.2 LABS Lab: Laboratory Tests Test 03/07/20 19:50 White Blood Count 5.5 x10^3/uL (4.0-11.0) Red Blood Count 3.53 x10^6/uL (4.30-5.70) L Hemoglobin 10.3 g/dL (13.0-17.5) L Hematocrit 31.2 % (39.0-53.0) L Mean Corpuscular Volume 88 fL (79-100) Mean Corpuscular Hemoglobin 29 pg (25-35) Mean Corpuscular Hemoglobin Concent 33 g/dL (31-37) Red Cell Distribution Width 17.5 % (11.5-14.5) H Platelet Count 122 x10^3/uL (140-400) L Neutrophils (%) (Auto) 66 % (31-73) Lymphocytes (%) (Auto) 21 % (24-48) L Monocytes (%) (Auto) 10 % (0-9) H Eosinophils (%) (Auto) 2 % (0-3) Basophils (%) (Auto) 1 % (0-3) Neutrophils # (Auto) 3.6 x10^3/uL (1.8-7.7) Lymphocytes # (Auto) 1.1 x10^3/uL (1.0-4.8) Monocytes # (Auto) 0.6 x10^3/uL (0.0-1.1) Eosinophils # (Auto) 0.1 x10^3/uL (0.0-0.7) Basophils # (Auto) 0.0 x10^3/uL (0.0-0.2) Prothrombin Time 14.1 SEC (11.7-14.0) H Prothrombin Time INR 1.1 (0.8-1.1) Sodium Level 140 mmol/L (136-145) Potassium Level 3.5 mmol/L (3.5-5.1) Chloride Level 105 mmol/L (98-107) Carbon Dioxide Level 31 mmol/L (21-32) Anion Gap 4 (6-14) L Blood Urea Nitrogen 10 mg/dL (8-26) Creatinine 0.9 mg/dL (0.7-1.3) Estimated GFR (Cockcroft-Gault) 79.6 Glucose Level 102 mg/dL (70-99) H Calcium Level 8.8 mg/dL (8.5-10.1) Troponin I Quantitative 0.074 ng/mL (0.000-0.055) UC-Tue-Y-Type Natriuretic Peptide 4523 pg/mL (0-449) H Laboratory Tests 03/07/20 19:50 Laboratory Tests 03/07/20 19:50 ECHOCARDIOGRAM ECHOCARDIOGRAM <Conclusion> The left ventricular systolic function is normal and the ejection fraction is within normal range. There is normal LV segmental wall motion. Calculated aortic valve area is .75 cm2 with maximum pressure gradient of 55 mmHg and mean pressure gradient of 39 mmHg. Doppler and color-flow analysis revealed severe aortic stenosis. Doppler and Color Flow revealed trace tricuspid regurgitation with an estimated PAP of 32 mmHg. DATE: 03/02/19 1316 Normal left ventricular systolic function, estimated ejection fraction is 65%. Moderate concentric hypertrophy. The right ventricular size, wall thickness and systolic function are normal. Pacemaker lead present in the ventricle. Mild biatrial dilatation. Trace MV regurgitation, mild ot moderate TV regurgitation. There is a well seated, normal functioning TAVR (# 26 Clara S3, MG= 8 mmHg), no paravalvular/transvalvular regurgitation. Estimated Peak Systolic PA Pressure 61 mmHg DATE 03/03/20 - LIMITED ECHO HEART CATH HEART CATH DATE: 01/08/2020 CARDIAC CATHETERIZATION REPORT FINDINGS: Selective left and right coronary cineangiograms. The left coronary was visualized with the TIG catheter. The left main bifurcated to LAD and circumflex vessel. The left main itself was free of any angiographically significant obstruction. The LAD was a type 2 configuration gave rise to a medium-sized diagonal branch which arose in the mid segment. There was a patent stent in the proximal mid segments of the LAD with mild in- stent restenosis of 20% to 30%. There was a 30-40 percent stenosis distal to the mid LAD stent. Otherwise, no high-grade focal obstruction in the LAD or its diagonal branch. The circumflex was visualized, gave rise to a 1st, 2nd and 3rd obtuse marginal branch. The circumflex and its marginal branches were all free of any angiographically significant disease. [place] right coronary was visualized with the TIG as well. Technically, it was dominant and supplied a posterior descending and posterolateral branch. The mid segment of the RCA demonstrated a 20% to 30% irregularity with a more focal 30% to 40% stenosis in the midportion of the posterolateral vessel. Otherwise the right coronary artery and its distal branches were all free of any angiographically significant disease. ASSESSMENT/PLAN: Mild to moderate nonobstructive coronary atherosclerosis. PLAN: We will proceed with remainder of the workup and planning for possible transcatheter aortic valve replacement. TAVR (Transcatheter Aortic Valve Replacement) Date of procedure: 03/02/2020 IMPRESSION: Severe symptomatic aortic valve stenosis. Successful transcatheter valve replacement utilizing a number 26 Clara S3. -Residual transaortic mean gradient of 1 mmHg. -no paravalvular regurgitation. No central valve regurgitation was noted. RECOMMENDATIONS: SBE prophylaxis indefinitely. Aspirin 81 mg indefinitely Echo Doppler in the morning. Early ambulation. ASSESSMENT/PLAN ASSESSMENT/PLAN 1. Acute on chronic diastolic CHF; Echo 03/03 with preserved LV systolic function as noted above. 2. Permanent AFIB; rate controlled. not on OAC due to high fall risk 3. 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 CAD s/p PCI/stent placement. Cath last month with mild to moderate, non- obstructive disease 5. Mild troponin elevation; initial 0.07. Type II demand ischemia. Recent cath noted above 6. SSS s/p PPM ([facility]). Device check 03/02/20 with normal function. 100% vpaced with underlying AFIB 7. Hypertension; controlled 8. Hyperlipidemia; statin 9. Dementia 10. H/o CVA Recommendations Mild diuresis with monitoring of labs Resume secondary prevention measures; ASA/statin, BB therapy Metoprolol for rate control Not on OAC due to fall risk. Has refused STEVEN closure in the past. Will defere to primary field laborer Supportive care ZARA LOPEZ MD 03/08/20 1547: CARDIAC CONSULT ASSESSMENT/PLAN ASSESSMENT/PLAN Patient seen and examined. Agree with LIQUID FLAVOR COMPOUNDER's assessment and plan. Continue diuresis for acute on chronic diastolic heart failure. Permanent atrial fibrillation rate controlled. Continue metoprolol. He is a poor candidate for long-term anticoagulation secondary to fall risk. He refused LAAO in the past. s/p TAVR, clinically stable. Recent 2D echo showed normal LV systolic function. Slight troponin elevation probably demand ischemia. Recent cardiac catheterization results noted above. s/p PPM with recent check showing normal function. Thank you for your consultation SLIM BECK APRN Mar 08, 2020 11:01 ZARA LOPEZ MD Mar 08, 2020 15:47
--- NOTE | 2020-03-08 11:52 | EKG ---
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: RADHA : [id number] Requested By: SLIM BECK Order Number: [id number] Reading MD: Measurements Intervals [place] Rate: 70 P: MA: QRS: 36 QRSD: 154 T: -78 QT: 444 QTc: 483 Interpretive Statements IRREGULAR RHYTHM, NO P-WAVE FOUND NON SPECIFIC INTRAVENTRICULAR BLOCK QRS(T) CONTOUR ABNORMALITY CONSIDER ANTEROSEPTAL MYOCARDIAL DAMAGE CONSIDER INFERIOR MYOCARDIAL DAMAGE ABNORMAL ECG RI6.01 Compared to ECG 06/21/2012 00:32:45 Sinus rhythm no longer present Left anterior fascicular block no longer present Right bundle-branch block no longer present Bifascicular block no longer present Right ventricular hypertrophy no longer present Early repolarization no longer present
[2020-03-08] MEDS ORDERED: AZELASTINE NASAL SPRAY 30ML BOTTLE. NS PRN (12:30)
[2020-03-08] MEDS ORDERED: POTASSIUM CHLORIDE 20 MEQ TABLET.ER. PO ONE (13:15)
[2020-03-08] MEDS ORDERED: FUROSEMIDE 40 MG/4 ML VIAL. IVP ONE (13:15)
[2020-03-08] MEDS ORDERED: ONDANSETRON PF 4 MG/2 ML VIAL. IVP PRN (13:30)
[2020-03-08] MEDS: CALCIUM CARBONATE 500 MG TAB.CHEW PO PRN (13:42)
--- NOTE | 2020-03-08 15:06 | NUR ---
Pharmacy Medication Review S: Consulted for medication review re: C.diff Risk Assessment score of 5 O: JEANNETTE ARREDONDO is a 89 year old with: Previous C.diff infection: No Previous hospitalization: Within 30 days Recent antibiotics: Within 30 days Use of gastric acid suppressor: YES Transfer from [place]/LTAC: No Current antibiotic regimen: NONE Current acid suppression regimen: PROTONIX A: Patient has been identified as having risk factors for C.diff infection as noted above. P: Antibiotic Regimen recommendation made: N/A Probiotic ordered: N/A PPI changed to [id number]: RX changed Protonix to Pepcid [facility], 03/08/20 1717
--- NOTE | 2020-03-08 17:23 | NUR ---
SW following. Spoke with RN and reviewed chart. Pt from home with significant other. Pt currently on 2l 02. Pt does not have 02. Pt on IV Zofran and COVID pending. Spoke with pt who stated no concerns about returning home at discharge. 6 minute walk might be needed prior to discharge to determine if home 02 is needed. SW following.
--- NOTE | 2020-03-08 18:29 | PDOC1 ---
History and Physical Date of Service: DOS: DATE: 03/08/20 TIME: 18:17 Chief Complaint: Chief Complain: shortness of breath History of Present Illness: HPI: 89 yo M with multiple morbidities who presents with SOB and cough that has worsened in the last 24 hours, but started about a week ago. 89 yo male who presented secondary to shortness of breath and cough for the last week. Patient forgetful/confused. Tells me he is here for indigestion. Denies any shortness of breath specifically, but does reports that he is breathing faster that normal. Appears dyspneic with exertion/talking. He denies any chest pain, palpitations, dizziness, diaphoresis, or nausea/vomiting. Does report forgetfulness. Underwent TAVR 03/02/20 at . Tolerated surgery well and was discharged the following day. Reports compliance with meds. Unsure who primary criminal psychologist is. Does not follow routinely at . 89-year-old male who presents to the emergency room complaining of 24 hours of cough, shortness of breath generally feeling unwell, nausea. Patient denies any abdominal pain but he feels very full. He had an aortic valve replacement done last week without any complications. His first he knows he does not have any history of congestive heart failure. He does have a pacemaker in. He states the cough is dry and rare. He denies any chest pain. He is not on oxygen at home. Past Medical/Surgical History: PMH/PSH: Past Medical History: AFIB, CAD, CHF, HTN, Hyperlipidemia, Aortic stenosis (s/p TAVR 03/02/20), COPD, Hx of CVA, GERD, BPH Past Surgical History: Appendectomy, Cholecystectomy, Bilateral Total knee replacement Allergies: Allergies: Coded Allergies: NSAIDS (Non-Steroidal Anti-Inflamma (Verified Allergy, Intermediate, 12/15/19) erythromycin base (Verified Allergy, Intermediate, 12/15/19) naproxen (Verified Allergy, Intermediate, 03/08/20) Family History: Family History: reviewed and none reported Social History: Social History: Smoking Status: Never Smoker Alcohol Use: None Current Medications: Current Medications Current Medications Ceftriaxone Sodium (Rocephin) 1 gm 1X ONCE IVP Last administered on 03/07/20at 20:45; Start 03/07/20 at 20:45; Stop 03/07/20 at 20:46; Status DC Pharmacy Consult (C.diff Med Screen By Rx) 1 each 1X ONCE [facility] ; Start 03/08/20 at 09:00; Stop 03/08/20 at 09:01; Status Cancel Acetaminophen (Tylenol) 1,000 mg PRN Q8HRS PRN PO pain or fever Last administered on 03/08/20at 09:50; Start 03/08/20 at 09:30 Aspirin (Aspirin Chewable) 81 mg DAILY PO ; Start 03/09/20 at 09:00 Atorvastatin Calcium (Lipitor) 40 mg DAILY PO ; Start 03/09/20 at 09:00 Azelastine HCl (Astelin) 2 spray PRN BID PRN NS ALLERGIES; Start 03/08/20 at 12:30 Donepezil HCl (Aricept) 10 mg DAILY PO ; Start 03/09/20 at 09:00 Metoprolol Succinate (Toprol Xl) 25 mg DAILY PO ; Start 03/09/20 at 09:00 Tamsulosin HCl (Flomax) 0.8 mg DAILY PO ; Start 03/09/20 at 09:00 Multivitamins (Thera M Plus) 1 tab DAILY PO ; Start 03/09/20 at 09:00 Fish Oil (Fish Oil) 1,000 mg DAILY PO ; Start 03/09/20 at 09:00 Pantoprazole Sodium (Protonix) 40 mg DAILYAC PO ; Start 03/09/20 at 07:30; Stop 03/08/20 at 15:08; Status DC Furosemide (Lasix) 40 mg 1X ONCE IVP Last administered on 03/08/20at 13:42; Start 03/08/20 at 13:15; Stop 03/08/20 at 13:16; Status DC Potassium Chloride (Klor-Con) 20 meq 1X ONCE PO Last administered on 03/08/20at 13:42; Start 03/08/20 at 13:15; Stop 03/08/20 at 13:16; Status DC Calcium Carbonate/ Glycine (Tums) 500 mg PRN AFTMEALHC PRN PO INDIGESTION Last administered on 03/08/20at 13:42; Start 03/08/20 at 13:30 Ondansetron HCl (Zofran) 4 mg PRN Q6HRS PRN IVP NAUSEA/VOMITING Last administered on 03/08/20at 13:43; Start 03/08/20 at 13:30 Famotidine (Pepcid) 20 mg BID PO ; Start 03/08/20 at 21:00 Active Scripts Active Reported Multi Vitamin Daily (Multivitamin) 1 Each Tablet 1 Tab PO DAILY 30 Days Spiriva (Tiotropium [place]) 18 Mcg Cap.w.dev 1 Cap IH DAILY Senna-Docusate Sodium Tablet (Sennosides/Docusate Sodium) 1 Each Tablet 2 Tab PO BID 5 Days Metoprolol Succinate ( Xl ) (Metoprolol Succinate) 25 Mg Tab.er.24h 1 Tab PO DAILY Atrovent Hfa (Ipratropium [place]) 12.9 Gm Hfa.aer.ad 2 Puff IH PRN BID PRN Furosemide 20 Mg Tablet 1 Tab PO DAILY Sea-[place] 1,000 mg Softgel ([place]-3S/Dha/Epa/Fish Oil) 1 Each Capsule 1 Each PO DAILY Azelastine Hcl 137 Mcg/0.137 Ml [place].pump 2 [place] NS BID PRN 30 Days Aspirin 81 Mg Tab.chew 1 Tab PO DAILY Acetaminophen 500 Mg Tablet 2 Tab PO PRN Q8HRS PRN 15 Days Donepezil Hcl 10 Mg Tablet 1 Tab PO DAILY Atorvastatin Calcium 40 Mg Tablet 1 Tab PO DAILY Flomax (Tamsulosin Hcl) 0.4 Mg Cap.er.24h 2 Cap PO DAILY Albuterol Sulfate Hfa Inhaler (Albuterol Sulfate) 8.5 Gm Hfa.aer.ad 2 Puff INH Q4HRS Omeprazole 40 Mg Capsule. 1 Cap PO DAILY ROS: Review of Systems Review of System REVIEW OF SYSTEMS: GENERAL: Denies weakness SKIN: No bruising, hair changes or rashes. EYES: No blurred, double or loss of vision. NOSE AND THROAT: No history of nosebleeds, hoarseness or sore throat. HEART: No history of palpitations, chest pain or shortness of breath on exertion. LUNGS: Denies cough, hemoptysis, wheezing or shortness of breath. GASTROINTESTINAL: Denies changes in appetite, nausea, vomiting, diarrhea or constipation. GENITOURINARY: No history of frequency, urgency, hesitancy or nocturia. NEUROLOGIC: Denies history of numbness, tingling, or tremor. PSYCHIATRIC: No history of panic, anxiety or depression. ENDOCRINE: No history of heat or cold intolerance, polyuria or polydipsia. EXTREMITIES: Denies joint pain, pain on walking or stiffness. Physical Exam: Vital Signs: Vital Signs Date Time Temp Pulse Resp B/P (MAP) Pulse Ox O2 Delivery O2 Flow Rate FiO2 03/08/20 15:00 97.6 72 18 153/66 (95) 95 Nasal Cannula 2.0 97.6 Physcial Exam: GEN: No apparent distress. Alert and oriented HEENT: Normal cephalic, atraumatic, external auditory canals are patent EYES: Extraocular muscles are intact, pupil are equally round and reactive to light and accommodation MUSCULOSKELETAL: Well developed , well nourished, good range of motion ENDOCRINE: No thyromegaly was palpated LYMPHATICS: No cervical chain or axillary nodes were noted HEMATOPOIETIC: No bruising NECK: Supple, no JVD, no thyromegaly was noted LUNGS: Clear to auscultation in all lung walls without rhonchi or wheezing HEART: RRR, S!, S2 present. Peripheral pulses intact, no obvious murmurs noted ABDOMEN: Soft, nontender. Positive bowel sounds, no organomegaly, normal bowel sounds EXTREMITIES: Without clubbing, cyanosis, or edema. Pedal pulses intact. Negative Homans sign NEUROLOGIC: Normal speech and tone. A&O x 3, moves all extremities, no obvious focal deficits PSYCHIATRIC: Normal affect, normal mood. Stable SKIN: No ulcerations or rashes, good skin turgor, no jaundice VASCULAR: Good capillary refill, neurovascular bundle appears to be intact Labs: Labs: Laboratory Tests Test 03/07/20 19:50 White Blood Count 5.5 x10^3/uL (4.0-11.0) Red Blood Count 3.53 x10^6/uL (4.30-5.70) Hemoglobin 10.3 g/dL (13.0-17.5) Hematocrit 31.2 % (39.0-53.0) Mean Corpuscular Volume 88 fL (79-100) Mean Corpuscular Hemoglobin 29 pg (25-35) Mean Corpuscular Hemoglobin Concent 33 g/dL (31-37) Red Cell Distribution Width 17.5 % (11.5-14.5) Platelet Count 122 x10^3/uL (140-400) Neutrophils (%) (Auto) 66 % (31-73) Lymphocytes (%) (Auto) 21 % (24-48) Monocytes (%) (Auto) 10 % (0-9) Eosinophils (%) (Auto) 2 % (0-3) Basophils (%) (Auto) 1 % (0-3) Neutrophils # (Auto) 3.6 x10^3/uL (1.8-7.7) Lymphocytes # (Auto) 1.1 x10^3/uL (1.0-4.8) Monocytes # (Auto) 0.6 x10^3/uL (0.0-1.1) Eosinophils # (Auto) 0.1 x10^3/uL (0.0-0.7) Basophils # (Auto) 0.0 x10^3/uL (0.0-0.2) Prothrombin Time 14.1 SEC (11.7-14.0) Prothromb Time International Ratio 1.1 (0.8-1.1) Sodium Level 140 mmol/L (136-145) Potassium Level 3.5 mmol/L (3.5-5.1) Chloride Level 105 mmol/L (98-107) Carbon Dioxide Level 31 mmol/L (21-32) Anion Gap 4 (6-14) Blood Urea Nitrogen 10 mg/dL (8-26) Creatinine 0.9 mg/dL (0.7-1.3) Estimated GFR (Cockcroft-Gault) 79.6 Glucose Level 102 mg/dL (70-99) Calcium Level 8.8 mg/dL (8.5-10.1) Troponin I Quantitative 0.074 ng/mL (0.000-0.055) FJ-Lfx-J-Type Natriuretic Peptide 4523 pg/mL (0-449) Laboratory Tests Test 03/07/20 19:50 White Blood Count 5.5 x10^3/uL (4.0-11.0) Red Blood Count 3.53 x10^6/uL (4.30-5.70) Hemoglobin 10.3 g/dL (13.0-17.5) Hematocrit 31.2 % (39.0-53.0) Mean Corpuscular Volume 88 fL (79-100) Mean Corpuscular Hemoglobin 29 pg (25-35) Mean Corpuscular Hemoglobin Concent 33 g/dL (31-37) Red Cell Distribution Width 17.5 % (11.5-14.5) Platelet Count 122 x10^3/uL (140-400) Neutrophils (%) (Auto) 66 % (31-73) Lymphocytes (%) (Auto) 21 % (24-48) Monocytes (%) (Auto) 10 % (0-9) Eosinophils (%) (Auto) 2 % (0-3) Basophils (%) (Auto) 1 % (0-3) Neutrophils # (Auto) 3.6 x10^3/uL (1.8-7.7) Lymphocytes # (Auto) 1.1 x10^3/uL (1.0-4.8) Monocytes # (Auto) 0.6 x10^3/uL (0.0-1.1) Eosinophils # (Auto) 0.1 x10^3/uL (0.0-0.7) Basophils # (Auto) 0.0 x10^3/uL (0.0-0.2) Prothrombin Time 14.1 SEC (11.7-14.0) Prothromb Time International Ratio 1.1 (0.8-1.1) Sodium Level 140 mmol/L (136-145) Potassium Level 3.5 mmol/L (3.5-5.1) Chloride Level 105 mmol/L (98-107) Carbon Dioxide Level 31 mmol/L (21-32) Anion Gap 4 (6-14) Blood Urea Nitrogen 10 mg/dL (8-26) Creatinine 0.9 mg/dL (0.7-1.3) Estimated GFR (Cockcroft-Gault) 79.6 Glucose Level 102 mg/dL (70-99) Calcium Level 8.8 mg/dL (8.5-10.1) Troponin I Quantitative 0.074 ng/mL (0.000-0.055) NM-Dwo-X-Type Natriuretic Peptide 4523 pg/mL (0-449) Images: Images CXR Assessment/Plan Assessment/Plan Acute hypoxic respiratory distress due to Acute on chronic diastolic CHF, preserved EF. Permanent AFIB Severe s/p TAVR 03/02/20 at CAD s/p PCI/stent placement. Cath last month with mild to moderate, non- obstructive disease Mild troponin elevation SSS s/p PPM (St. Lauri). Device check 03/02/20 with normal function. 100% ventricular paced Hypertension; controlled Hyperlipidemia; statin Dementia H/o CVA Admit to medicine for further care Cardiology consult consider IV gentle diuresis restart home cardioprotective medications continue telemonitoring trend trponins for demand ischemia Lovenox for DVT prophylaxis Cardiac diet FULL code Dispo: pending Echo Justifications for Admission Other Justification SANTIAGO ECHEVERRIA MD Mar 08, 2020 18:29
[2020-03-08] MEDS: FAMOTIDINE 20 MG TABLET. PO SCH (22:03)
[2020-03-09 03:00] VITALS: BP 146/67
[2020-03-09 07:05] VITALS: BP 158/71
[2020-03-09] MEDS ORDERED: PANTOPRAZOLE 40 MG TABLET.DR. PO SCH (07:30)
[2020-03-09] MEDS ORDERED: ASPIRIN CHEWABLE 81 MG TABLET. PO SCH (09:00)
[2020-03-09] MEDS ORDERED: OMEGA-3 FATTY ACIDS/FISH OIL 1,000 MG CAPSULE. PO SCH (09:00)
[2020-03-09] MEDS ORDERED: METOPROLOL SUCC 24HR ER 25 MG TAB.ER.24H. PO SCH (09:00)
[2020-03-09] MEDS ORDERED: DONEPEZIL HCL 10 MG TABLET. PO SCH (09:00)
[2020-03-09] MEDS ORDERED: MULTIVITAMIN with MINERAL TABLET. PO SCH (09:00)
[2020-03-09] MEDS ORDERED: ATORVASTATIN CALCIUM 40 MG TABLET. PO SCH (09:00)
[2020-03-09] MEDS ORDERED: TAMSULOSIN 0.4 MG CAP.ER.24H. PO SCH (09:00)
[2020-03-09] MEDS: FAMOTIDINE 20 MG TABLET. PO SCH (09:04)
[2020-03-09] MEDS: ACETAMINOPHEN 500 MG TABLET PO PRN (09:05)
[2020-03-09 11:05] VITALS: BP 125/63
[2020-03-09] MEDS: CALCIUM CARBONATE 500 MG TAB.CHEW PO PRN (11:08)
--- NOTE | 2020-03-09 11:17 | PDOC ---
SLIM BECK SENIOR TECHNICAL BUSINESS ANALYST 03/09/20 1116: CARDIO Progress Notes Date and Time Date of Service 03/09/20 Time of Evaluation 1115 Subjective Subjective: No Chest Pain, No shortness of breath, No Palpitations, Other (c/o low abdominal cramping ) Vitals Vitals Vital Signs Date Time Temp Pulse Resp B/P (MAP) Pulse Ox O2 Delivery O2 Flow Rate FiO2 03/09/20 09:05 68 146/67 03/09/20 07:05 97.5 25 95 3.0 97.5 03/09/20 03:00 Room Air Weight Weight [ ] Input and Output Intake and Output Intake and Output 03/09/20 07:00 Intake Total 600 ml Output Total 2100 ml Balance -1500 ml Intake Oral 600 ml Output Urine Total 2100 ml # Voids 1 Physical Exam HEENT: Neck Supple W Full Motion Chest: Symmetric LUNGS: Clear to Auscultation, Other (diminished bases) Heart: other (vpaced with underlying AFIB) Abdomen: Soft N/T Extremities: No Edema Neurology: alert, follow commands, confused Assessment Assessment 1. Acute on chronic diastolic CHF; Echo 03/03 with preserved LV systolic function as noted above. COVID negative. improved s/p IV diuresis 2. Permanent AFIB; rate controlled. not on OAC due to high fall risk 3. Severe s/p TAVR 03/02/20 at . Clinically stable 4. CAD s/p PCI/stent placement. Cath last month with mild to moderate, non- obstructive disease 5. Mild troponin elevation; initial 0.07. Most probably type II demand ischemia. 6. SSS s/p PPM (St. Lauri). Device check 03/02/20 with normal function. 100% vpaced with underlying AFIB 7. Hypertension; controlled 8. Hyperlipidemia; statin 9. Dementia 10. H/o CVA Recommendations Resume oral Lasix Continue secondary prevention measures; ASA/statin, BB therapy Metoprolol for rate control Poor candidate for OAC due to fall risk. Has refused LAAO in the past. Will defer to primary cement paver Follow up with primary cement paver, Dr. Easton. Has appointment scheduled this Saturday. Justicifation of Admission Dx: Justifications for Admission: Justification of Admission Dx: N/A ZARA LOPEZ MD 03/09/202038: CARDIO Progress Notes Assessment Assessment Patient seen and examined. Agree with CAP AND HAT PRODUCTION SUPERVISOR's assessment and plan. Acute on chronic diastolic heart failure better compensated. Permanent atrial fibrillation rate controlled. He is a poor candidate for long-term anticoagulation secondary to fall risk. He refused LAAO in the past. s/p TAVR, clinically stable. Recent 2D echo showed normal LV systolic function. Slight troponin elevation probably demand ischemia. Recent cardiac catheterization did not show any lesions needing intervention s/p PPM with recent check showing normal function. SLIM BECK APRN Mar 09, 2020 11:16 ZARA LOPEZ MD Mar 09, 2020 20:39
[2020-03-09 15:05] VITALS: BP 137/72
--- NOTE | 2020-03-09 15:27 | DISCH ---
DISCHARGE INSTRUCTIONS Condition on Discharge Condition on Discharge: Stable Activity After Discharge Activity Instructions for Disc: Activity as tolerated Exercise Instruction after Dis: Progress as tolerated Driving Instructions after Dis: Do not drive today Weight Bearing Status after Di: Full weight bearing Diet after Discharge Diet after Discharge: Cardiac Checks after Discharge Checks after discharge: Check your Temp as needed DC Comment: CBC, CMP Contacting the DR. after DC Call your doctor for: If your condition worsens Follow-Up Follow up with: Please keep cardiology appointment this Saturday with your primary cardiologi Follow Up With: PCP within 2 weeks of discharge SANTIAGO ECHEVERRIA MD Mar 09, 2020 15:27
--- NOTE | 2020-03-09 15:34 | EKG ---
[facility] [address] [place] [address] Test Date: 2020-03-08 Test Time: 06:28:14 Pat Name: JEANNETTE ARREDONDO Department: Room: Gender: Berry Picker Machine Operator: : [id number] Requested By: DAISY HUTCHINSON Order Number: [id number] Reading MD: Measurements Intervals [place] Rate: 82 P: 66 [place]: 144 QRS: 74 QRSD: 84 T: 24 QT: 386 QTc: 454 Interpretive Statements SINUS RHYTHM NORMAL ECG RI6.02 No previous ECG available for comparison
[2020-03-09 15:44] LABS: CALCIUM 9.5 mg/dL (8.5-10.1); GFR 70.5; MAGNESIUM 1.5 mg/dL (1.8-2.4); POTASSIUM 4.2 mmol/L (3.5-5.1)
--- NOTE | 2020-03-09 17:36 | NUR ---
SW following. Spoke with RN and reviewed chart. Pt is now on room air so home 02 setup will not be needed at discharge. Discharge plan remains home, self-care. SW available as needed. Addendum: 03/10/20 at 1239 by ALEXA HOANG Pt discharged home, self-care. No further SW needs.
[2020-03-10] MEDS ORDERED: FUROSEMIDE 20 MG TABLET PO SCH (09:00)
--- NOTE | 2020-03-10 22:19 | PDOC3 ---
[facility]-Discharge Summary Date of Admission: Date of Admission: Mar 08, 2020 Date of Discharge: Date of Discharge: Mar 09, 2020 Admission Diagnosis: Admitting Diagnosis: Acute hypoxic respiratory distress due to Acute on chronic diastolic CHF, preserved EF. Permanent AFIB Severe s/p TAVR 03/02/20 at CAD s/p PCI/stent placement. Cath last month with mild to moderate, non- obstructive disease Mild troponin elevation SSS s/p PPM (St. Lauri). Device check 03/02/20 with normal function. 100% ventricular paced Hypertension; controlled Hyperlipidemia; statin Dementia H/o CVA Discharge Diagnosis: Discharge Diagnosis: Acute hypoxic respiratory distress due to Acute on chronic diastolic CHF, preserved EF. Permanent AFIB Severe s/p TAVR 03/02/20 at CAD s/p PCI/stent placement. Cath last month with mild to moderate, non- obstructive disease Mild troponin elevation SSS s/p PPM (St. Lauri). Device check 03/02/20 with normal function. 100% ventricular paced Hypertension; controlled Hyperlipidemia; statin Dementia H/o CVA Consults: Consults: Cardiology Hospital Course: Hospital Course: 89 yo male who presented secondary to shortness of breath and cough for the last week. Patient forgetful/confused. Tells me he is here for indigestion. Denies any shortness of breath specifically, but does reports that he is breathing faster that normal. Appears dyspneic with exertion/talking. He denies any chest pain, palpitations, dizziness, diaphoresis, or nausea/vomiting. Does report forgetfulness. Underwent TAVR 03/02/20 at . Tolerated surgery well and was discharged the following day. Reports compliance with meds. Unsure who primary hand ornament maker is. Does not follow routinely at . Admitted for further care and cardiac evaluation. He was given IV 40mg Lasix x 1 dose and diuresed adequately. He was clinically stable from my standpoint and breathing 100% on RA without need for any supllemental oxygen. The patient will have a cardiology followup with his primary hand ornament maker this Saturday03/11/20. The rest of his hospital course was uneventful. Disposition: Disposition/Orders: D/C to Home Activity: Activity: Resume previous activity Diet: Diet: Cardiac Medications: Home Meds Reported Medications Multivitamin (MULTI VITAMIN DAILY) 1 Each Tablet, 1 TAB PO DAILY for supplement for 30 Days, #30 TAB 0 Refills 03/08/20 Tiotropium [place] (SPIRIVA) 18 Mcg Cap.w.dev, 1 CAP IH DAILY for copd, #30 CAP 3 Refills 03/08/20 Sennosides/Docusate Sodium (Senna-Docusate Sodium Tablet) 1 Each Tablet, 2 TAB PO BID for constipation for 5 Days, #20 TAB 0 Refills 03/08/20 Metoprolol Succinate (METOPROLOL SUCCINATE ( XL )) 25 Mg Tab.er.24h, 1 TAB PO DAILY for HTN, #30 TAB 5 Refills 03/08/20 Ipratropium [place] (ATROVENT HFA) 12.9 Gm Hfa.aer.ad, 2 PUFF IH PRN BID PRN for SHORTNESS OF BREATH, #12.9 GM 5 Refills 03/08/20 Furosemide (FUROSEMIDE) 20 Mg Tablet, 1 TAB PO DAILY for diuretic, #90 TAB 1 Refill 03/08/20 [place]-3S/Dha/Epa/Fish Oil (Sea-[place] 1,000 mg Softgel) 1 Each Capsule, 1 EACH PO DAILY for cholesterol, CAP 03/08/20 Azelastine Hcl (AZELASTINE HCL) 137 Mcg/0.137 Ml [place].pump, 2 SPRAY NS BID PRN for ALLERGIES for 30 Days, #30 ML 0 Refills 03/08/20 Aspirin (ASPIRIN) 81 Mg Tab.chew, 1 TAB PO DAILY for prophylaxis, #30 TAB 3 Refills 03/08/20 Acetaminophen (ACETAMINOPHEN) 500 Mg Tablet, 2 TAB PO PRN Q8HRS PRN for pain or fever for 15 Days, #60 TAB 0 Refills 03/08/20 Donepezil Hcl (DONEPEZIL HCL) 10 Mg Tablet, 1 TAB PO DAILY for dementia, #90 TAB 1 Refill 12/15/19 Atorvastatin Calcium (ATORVASTATIN CALCIUM) 40 Mg Tablet, 1 TAB PO DAILY for HLD, #30 TAB 5 Refills 12/15/19 Tamsulosin Hcl (FLOMAX) 0.4 Mg Cap.er.24h, 2 CAP PO DAILY for BPH, #90 CAP 3 Refills 12/15/19 Albuterol Sulfate (ALBUTEROL SULFATE HFA INHALER) 8.5 Gm Hfa.aer.ad, 2 PUFF INH Q4HRS for FOR ASTHMA, INHALER 0 Refills 09/13/14 Omeprazole (OMEPRAZOLE) 40 Mg Capsule.dr, 1 CAP PO DAILY, #30 CAP 3 Refills 09/13/14 Discontinued Reported Medications Zonisamide (ZONISAMIDE) 25 Mg Capsule, 50 MG PO HS for unknown, CAP 12/15/19 Scheduled Albuterol Sulfate (Albuterol Sulfate Hfa Inhaler), 2 PUFF INH Q4HRS, (Reported) Aspirin (Aspirin), 1 TAB PO DAILY, (Reported) Atorvastatin Calcium (Atorvastatin Calcium), 1 TAB PO DAILY, (Reported) Donepezil Hcl (Donepezil Hcl), 1 TAB PO DAILY, (Reported) Furosemide (Furosemide), 1 TAB PO DAILY, (Reported) Metoprolol Succinate (Metoprolol Succinate ( Xl )), 1 TAB PO DAILY, (Reported) Multivitamin (Multi Vitamin Daily), 1 TAB PO DAILY, (Reported) [place]-3S/Dha/Epa/Fish Oil (Sea-[place] 1,000 mg Softgel), 1 EACH PO DAILY, (Reported) Omeprazole (Omeprazole), 1 CAP PO DAILY, (Reported) Sennosides/Docusate Sodium (Senna-Docusate Sodium Tablet), 2 TAB PO BID, (Reported) Tamsulosin Hcl (Flomax), 2 CAP PO DAILY, (Reported) Tiotropium [place] (Spiriva), 1 CAP IH DAILY, (Reported) Scheduled PRN Acetaminophen (Acetaminophen), 2 TAB PO PRN Q8HRS PRN for pain or fever, (Reported) Azelastine Hcl (Azelastine Hcl), 2 SPRAY NS BID PRN for ALLERGIES, (Reported) Ipratropium [place] (Atrovent Hfa), 2 PUFF IH PRN BID PRN for SHORTNESS OF BREATH, (Reported) Discontinued Medications Zonisamide (Zonisamide), 50 MG PO HS, (Reported) Total Time: Total Time: Total time spent was 32 minutes in preparing scripts, discharge planning with SW and RN, and preparing this discharge summary. Patient seen and examined on day of discharge. Justicifation of Admission Dx: Justifications for Admission: Justification of Admission Dx: N/A SANTIAGO ECHEVERRIA MD Mar 10, 2020 22:18
== END 2020-03-09 18:28 | disposition home or self-care (01) ==
LOC: ER 19:14 → INTOOBSV 21:14 → 6 SOUTH 21:14
PROVIDERS: ADMIT Family Medicine; ATTEND Family Medicine
DX: I11.0 Hypertensive heart disease with heart failure (principal); Z20.828 Contact with and (suspected) exposure to other viral communicable diseases; I50.33 Acute on chronic diastolic (congestive) heart failure; J18.9 Pneumonia, unspecified organism; I48.91 Unspecified atrial fibrillation; R06.03 Acute respiratory distress; I25.10 Atherosclerotic heart disease of native coronary artery without angina pectoris; I49.5 Sick sinus syndrome; I35.0 Nonrheumatic aortic (valve) stenosis; R74.8 Abnormal levels of other serum enzymes; E78.5 Hyperlipidemia, unspecified; K21.9 Gastro-esophageal reflux disease without esophagitis; N40.0 Benign prostatic hyperplasia without lower urinary tract symptoms; R09.02 Hypoxemia; E78.00 Pure hypercholesterolemia, unspecified; J45.909 Unspecified asthma, uncomplicated; I25.2 Old myocardial infarction; F02.80 Dementia in other diseases classified elsewhere, unspecified severity, without behavioral disturbance, psychotic disturbance, mood disturbance, and anxiety; Z86.73 Personal history of transient ischemic attack (TIA), and cerebral infarction without residual deficits; Z95.1 Presence of aortocoronary bypass graft; Z90.49 Acquired absence of other specified parts of digestive tract; Z96.653 Presence of artificial knee joint, bilateral; Z79.82 Long term (current) use of aspirin
CPT/HCPCS: 36415; 71045; 80048; 83735; 83880; 84484; 85025; 85610; 87493; 93005; 96374; 96375; 96376; 99285; G0378; J0696; J1940; J2405; U0003; G0379

== ENCOUNTER → 2020-04-25 | Outpatient (CLI) | payer MEDICARE ==
[~2020-04-25] MED LIST changes: +ACET500T68 PO; +ASPI-630 PO; +ATROVENT HFA12.9 GM IH; +FURO20TA3 PO; +METO-239 PO; +MULT-245 PO; +SENN1TAB99 PO; +TIOT18CA IH; +TOPI25TA7 PO; +[UNRECOGNIZED DRUG - CODE] PO
== END ==
LOC: LAB 12:51
PROVIDERS: ATTEND Internal Medicine Gastroenterology
DX: Z01.812 Encounter for preprocedural laboratory examination (principal); R13.10 Dysphagia, unspecified; D50.9 Iron deficiency anemia, unspecified; Z20.828 Contact with and (suspected) exposure to other viral communicable diseases
CPT/HCPCS: U0003

== ENCOUNTER → 2020-04-27 | Day surgery (SDC) | payer MEDICARE ==
[~2020-04-27] MED LIST changes: +HYDROmorphone 2 MG/ML VIAL IV PRN; +IV RINGERS,LACTATED 1000ML 1,000 ML IV SCH; +MORPHINE SULFATE 2 MG/ML VIAL. IV PRN; +ONDANSETRON PF 4 MG/2 ML VIAL. IV PRN; +PROCHLORPERAZINE 10 MG/2 ML VIAL. IV PRN; +PROPOFOL 10 MG/ML (20ML) VIAL. IV ONE; +fentaNYL PF VIAL 100 MCG/2 ML VIAL IV PRN
[2020-04-27 08:25] VITALS: BP 135/71
== END | disposition home or self-care (01) ==
LOC: SURG 06:12
PROVIDERS: ATTEND Internal Medicine Gastroenterology
DX: R13.10 Dysphagia, unspecified (principal); K29.50 Unspecified chronic gastritis without bleeding; I11.0 Hypertensive heart disease with heart failure; I50.9 Heart failure, unspecified; E78.00 Pure hypercholesterolemia, unspecified; I48.91 Unspecified atrial fibrillation; J44.9 Chronic obstructive pulmonary disease, unspecified; K21.9 Gastro-esophageal reflux disease without esophagitis; M19.90 Unspecified osteoarthritis, unspecified site; Z90.49 Acquired absence of other specified parts of digestive tract; Z98.890 Other specified postprocedural states; Z79.899 Other long term (current) drug therapy; Z79.82 Long term (current) use of aspirin; Z88.1 Allergy status to other antibiotic agents; Z88.8 Allergy status to other drugs, medicaments and biological substances
CPT/HCPCS: 43235; 43450; J2704